=== PATIENT | female | born 1990 | race Caucasian/White ===

== ENCOUNTER 2018-10-29 10:59 | Inpatient (IN) | payer OTHER ==
[2018-10-29] MEDS: LACTATED RINGER'S 1,000 ML IV ×2 (11:29→21:05)
[2018-10-29] MEDS ORDERED: MISOPROSTOL 200 MCG TAB PR ×2 (11:30→17:00)
[2018-10-29] MEDS ORDERED: BUTORPHANOL 2 MG INJ IV (11:30)
[2018-10-29] MEDS ORDERED: METHYLERGONOVINE 0.2 MG INJ IM ×2 (11:30→17:00)
[2018-10-29] MEDS ORDERED: CARBOPROST 250 MCG INJ IM ×2 (11:30→17:00)
[2018-10-29] MEDS ORDERED: OXYTOCIN 30 UNITS/LR 500 ML IV ×2 (11:30→17:00)
[2018-10-29] MEDS ORDERED: LIDOCAINE 1% (MPF) 30 ML INJ INJ (11:30)
[2018-10-29] MEDS: AMPICILLIN 2 GM/NS (PMX) 100 ML IV (11:33)
[2018-10-29 11:49] LABS: ADD MAN DIFF? NO
[2018-10-29 11:56] LABS: BASOPHILS % 0.1 % (0.0-2.0); EOSINOPHILS % 0.1 % (0.0-7.0); HEMATOCRIT 40.2 % (37.0-47.0); LYMPHOCYTES # 1.6 10^3/ul (0.8-2.9); LYMPHOCYTES % 11.2 % (15.0-51.0); MEAN CORPUSCULAR HEMOGLOBIN 27.7 pg (29.0-33.0); MEAN CORPUSCULAR HGB CONC 32.3 g/dl (32.0-37.0); MEAN CORPUSCULAR VOLUME 85.5 fl (82.0-101.0); MEAN PLATELET VOLUME 10.1 fl (7.4-10.4); MONOCYTES % 6.8 % (0.0-11.0); NEUTROPHIL # 11.5 10^3/ul (1.6-7.5); NEUTROPHILS % 81.3 % (39.0-77.0); PLATELET COUNT 242 10^3/UL (140-415); RED CELL DISTRIBUTION WIDTH 14.9 % (11.5-14.5)
[2018-10-29 11:56] LABS: WHITE BLOOD COUNT 14.2 10^3/ul (4.8-10.8)
[2018-10-29 12:11] LABS: INR 0.93; PROTIME 12.6 Sec (11.9-14.9)
[2018-10-29 12:12] LABS: PARTIAL THROMBOPLASTIN TIME 28.1 Sec (23.0-35.0)
[2018-10-29] MEDS: OXYTOCIN 30 UNITS/LR 500 ML IV ×2 (12:17→12:53)
[2018-10-29 12:46] LABS: HEPATITIS B SURFACE ANTIGEN NEGATIVE (NEGATIVE)
[2018-10-29] MEDS: IBUPROFEN 600 MG TAB PO ×2 (13:36→18:00)
[2018-10-29 13:38] LABS: AMPHETAMINE/METHAMPHETAMINE Negative (NEGATIVE); BARBITURATES Negative (NEGATIVE); BENZODIAZEPINES Negative (NEGATIVE); CANNABINOIDS Negative (NEGATIVE); COCAINE Negative (NEGATIVE); OPIATES Negative (NEGATIVE)
[2018-10-29] MEDS ORDERED: MAGNESIUM SULFATE 4 GM/100 ML 100 ML IVPB (13:50)
[2018-10-29] MEDS ORDERED: NACL 0.9% 3 ML SYG IV (14:00)
[2018-10-29] MEDS: MAGNESIUM SULFATE 4 GM/100 ML 100 ML IV (14:05)
[2018-10-29 14:11] LABS: ADD MAN DIFF? NO
[2018-10-29 14:14] LABS: BASOPHILS % 0.2 % (0.0-2.0); EOSINOPHILS % 0.1 % (0.0-7.0); HEMATOCRIT 37.9 % (37.0-47.0); HEMOGLOBIN 12.3 g/dl (12.0-16.0); LYMPHOCYTES # 1.3 10^3/ul (0.8-2.9); LYMPHOCYTES % 6.9 % (15.0-51.0); MEAN CORPUSCULAR HEMOGLOBIN 27.8 pg (29.0-33.0); MEAN CORPUSCULAR HGB CONC 32.5 g/dl (32.0-37.0); MEAN CORPUSCULAR VOLUME 85.7 fl (82.0-101.0); MONOCYTES % 5.3 % (0.0-11.0); NEUTROPHIL # 15.8 10^3/ul (1.6-7.5); NEUTROPHILS % 86.9 % (39.0-77.0); PLATELET COUNT 218 10^3/UL (140-415); RED BLOOD COUNT 4.42 10^6/ul (4.20-5.40); RED CELL DISTRIBUTION WIDTH 14.9 % (11.5-14.5)
[2018-10-29 14:14] LABS: WHITE BLOOD COUNT 18.2 10^3/ul (4.8-10.8)
[2018-10-29 14:31] LABS: ALBUMIN 3.3 g/dl (3.3-4.9); ALBUMIN/GLOBULIN RATIO 0.94; ALKALINE PHOSPHATASE 144 IU/L (42-121); ANION GAP 10 (5-13); ASPARTATE AMINO TRANSFERASE 17 IU/L (15-46); BILIRUBIN,INDIRECT 0.1 mg/dl (0-1.1); BILIRUBIN,TOTAL 0.1 mg/dl (0.2-1.3); BLOOD UREA NITROGEN 6 mg/dl (7-20); CALCIUM 8.9 mg/dl (8.4-10.2); CARBON DIOXIDE 22 mmol/L (21-31); CHLORIDE 104 mmol/L (97-110); CREATININE 0.46 mg/dl (0.44-1.00); Estimated GFR > 60 mL/min (>60); GLUCOSE 119 mg/dl (70-220); SODIUM 136 mmol/L (135-144); TOTAL PROTEIN 6.8 g/dl (6.1-8.1); URIC ACID 4.5 mg/dl (3.1-7.9)
[2018-10-29 14:32] LABS: ALANINE AMINOTRANSFERASE < 6 IU/L (13-69)
[2018-10-29] MEDS: MAGNESIUM SULFATE 20 GM/500 ML 500 ML IV (14:33)
[2018-10-29 14:36] LABS: INR 0.93; PARTIAL THROMBOPLASTIN TIME 27.2 Sec (23.0-35.0); PROTIME 12.6 Sec (11.9-14.9)
[2018-10-29 14:46] LABS: FIBRIN SPLIT PRODUCT <10 ug/ml (<10)
[2018-10-29] MEDS: AMPICILLIN 1 GM/NS (PMX) 50 ML IV (15:30)
[2018-10-29] MEDS: LABETALOL HCL 20MG INJ IV (15:41)
[2018-10-29 16:27] LABS: ADD UMIC YES; UR ASCORBIC ACID 40 mg/dL (NEGATIVE); UR BILIRUBIN (Dip) NEGATIVE (NEGATIVE); UR BLOOD (Dip) NEGATIVE (NEGATIVE); UR CLARITY CLEAR (CLEAR); UR COLOR STRAW (YELLOW); UR GLUCOSE (Dip) 1+ mg/dL (NEGATIVE); UR KETONES (Dip) NEGATIVE (NEGATIVE); UR LEUKOCYTE ESTERASE (Dip) NEGATIVE Leu/ul (NEGATIVE); UR NITRITE (Dip) NEGATIVE (NEGATIVE); UR TOTAL PROTEIN (Dip) 1+ mg/dl (NEGATIVE); UR UROBILINOGEN (Dip) NEGATIVE (NEGATIVE); URINE PH (Dip) 6 (5.0-9.0)
[2018-10-29 16:39] LABS: UR MUCUS FEW /HPF (NONE SEEN); UR RBC 2 /HPF (0-5); UR SQUAMOUS EPITHELIAL CELL FEW /HPF (FEW); UR WBC 7 /HPF (0-5)
[2018-10-29] MEDS ORDERED: BENZOCAINE 20% 56 ML SPRAY TOP (17:00)
[2018-10-29] MEDS ORDERED: WITCH HAZEL/GLYCERIN PAD PR (17:00)
[2018-10-29] MEDS: LABETALOL 100 MG TAB PO (17:00)
[2018-10-29] MEDS ORDERED: ZOLPIDEM 5 MG TAB PO (17:00)
[2018-10-29] MEDS ORDERED: OXYCODONE/ASPIRIN (4.88/325) TAB PO ×2 (17:00)
[2018-10-29 20:13] LABS: RAPID PLASMA REAGIN NONREACTIVE (NR)
[2018-10-29] MEDS: SENNA/DOCUSATE NA (8.6MG/50MG) TAB PO (21:09)
[2018-10-30] MEDS: LABETALOL 100 MG TAB PO ×3 (01:00→21:00)
[2018-10-30 01:10] LABS: MAGNESIUM 4.1 mg/dl (1.7-2.5)
[2018-10-30] MEDS: IBUPROFEN 600 MG TAB PO ×4 (01:14→18:10)
[2018-10-30] MEDS: MAGNESIUM SULFATE 20 GM/500 ML 500 ML IV ×3 (01:26→21:19)
[2018-10-30 08:42] LABS: ADD MAN DIFF? NO
[2018-10-30 08:46] LABS: WHITE BLOOD COUNT 10.8 10^3/ul (4.8-10.8)
[2018-10-30 08:46] LABS: BASOPHILS % 0.2 % (0.0-2.0); EOSINOPHILS # 0.1 10^3/ul (0.0-0.5); EOSINOPHILS % 0.8 % (0.0-7.0); HEMATOCRIT 34.6 % (37.0-47.0); LYMPHOCYTES # 2.5 10^3/ul (0.8-2.9); MEAN CORPUSCULAR HEMOGLOBIN 27.8 pg (29.0-33.0); MEAN CORPUSCULAR HGB CONC 31.8 g/dl (32.0-37.0); MEAN CORPUSCULAR VOLUME 87.4 fl (82.0-101.0); MONOCYTE # 0.9 10^3/ul (0.3-0.9); MONOCYTES % 8.1 % (0.0-11.0); NEUTROPHIL # 7.2 10^3/ul (1.6-7.5); NEUTROPHILS % 67.2 % (39.0-77.0); PLATELET COUNT 225 10^3/UL (140-415); RED BLOOD COUNT 3.96 10^6/ul (4.20-5.40); RED CELL DISTRIBUTION WIDTH 14.9 % (11.5-14.5)
[2018-10-30] MEDS: SENNA/DOCUSATE NA (8.6MG/50MG) TAB PO ×2 (09:42→21:24)
[2018-10-30 12:07] LABS: RUBELLA ANTIBODY - IGG 1.85 index
[2018-10-30] MEDS: LANOLIN HPA 1 PKT TOP (16:23)
[2018-10-30] MEDS: LACTATED RINGER'S 1,000 ML IV ×2 (21:19→23:10)
[2018-10-31] MEDS: IBUPROFEN 600 MG TAB PO ×3 (00:22→11:34)
[2018-10-31] MEDS: MAGNESIUM SULFATE 20 GM/500 ML 500 ML IV (05:52)
[2018-10-31] MEDS: DIPHTH/TET/ACEL PERTUSS (ADULT) 0.5 ML VIAL IM* (09:00)
[2018-10-31] MEDS: LABETALOL 100 MG TAB PO (09:00)
[2018-10-31] MEDS: SENNA/DOCUSATE NA (8.6MG/50MG) TAB PO (09:00)
[2018-11-03 12:42] LABS: RUBELLA ANTIBODY - IGM <20.00 AU/mL
== END 2018-10-31 14:42 | disposition home or self-care (01) | DRG 807 ==
LOC: L-D 10:59 → PP1 16:25
PROC: 10E0XZZ Delivery of Products of Conception, External Approach (ICD-10-PCS; principal; 2018-10-29)
DX: O80 Encounter for full-term uncomplicated delivery (principal); Z37.0 Single live birth; Z3A.39 39 weeks gestation of pregnancy
CPT/HCPCS: 80053; 80307; 81001; 83735; 84560; 85025; 85362; 85384; 85610; 85730; 86592; 86762; 86850; 86900; 86901; 87340

== ENCOUNTER 2019-04-29 14:47 | Emergency (ER) | payer OTHER | END 2019-04-29 15:49 | disposition home or self-care (01) | LOC: E/R 14:47 | DX: Z76.0 Encounter for issue of repeat prescription (principal); Z72.0 Tobacco use | CPT/HCPCS: 99281; Z7502 ==